=== PATIENT | male | born 1990 | race American Indian/Alaskan Native ===

== ENCOUNTER 2020-11-20 18:10 | Emergency (ER) | payer SELFPAY ==
[2020-11-20] MEDS ORDERED: fentaNYL 100 MCG/2 ML INJ IV ONE (18:16)
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
[2020-11-20] MEDS ORDERED: TETANUS,DIPHTHERIA TOXOID ADULT 0.5 ML INJ IM ONE (19:14)
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
[2020-11-20] MEDS ORDERED: KETOROLAC 30 MG/1 ML INJ IV ONE (19:27)
[2020-11-20] MEDS ORDERED: TETANUS,DIPH,PERTUSS(ACELL) VACCINE 0.5 ML SYRINGE IM ONE (19:29)
[2020-11-20 21:02] LABS: Basophils # (Auto) 0.1 K/mm3 (0.0-0.1); Basophils % (Auto) 0.4 % (0.0-1.8); Hematocrit 42.4 % (35.5-45.6); Lymphocytes # (Auto) 0.9 K/mm3 (1.2-5.4); Lymphocytes % (Auto) 4.6 % (13.4-35.0); Mean Corpuscular HGB Conc 33 % (32-34); Mean Corpuscular Volume 90 fl (84-94); Monocytes # (Auto) 1.4 K/mm3 (0.0-0.8); Monocytes % (Auto) 7.2 % (0.0-7.3); Platelet Count 186 K/mm3 (140-440); Red Cell Distribution Width 14.4 % (13.2-15.2)
[2020-11-20 21:05] LABS: BUN/Creatinine Ratio 9; Blood Urea Nitrogen 10 mg/dL (9-20); Calcium 9.1 mg/dL (8.4-10.2); Hemolysis Index 18
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
[2020-11-20 22:53] VITALS: BP 132/75
== END 2020-11-20 22:38 | disposition still patient (30) ==
LOC: ED 18:10
DX: S91.032A Puncture wound without foreign body, left ankle, initial encounter (principal); Z79.899 Other long term (current) drug therapy; W34.00XA Accidental discharge from unspecified firearms or gun, initial encounter; Y93.89 Activity, other specified; Y92.89 Other specified places as the place of occurrence of the external cause; Y99.8 Other external cause status
CPT/HCPCS: 36415; 73590; 73600; 73706; 80048; 85025; 90471; 90715; 96365; 96375; 99284; J0690; J1885; J3010; Q9967; 90714